=== PATIENT | male | born 1975 | race Hispanic/Latino ===

== ENCOUNTER 2018-08-15 10:16 | Emergency (ER) | payer OTHER ==
[2018-08-15] MEDS ORDERED: Sodium Chloride 0.9% 1,000 ML IV STA (11:08)
[2018-08-15] MEDS ORDERED: Tdap Vaccine 0.5 ml Vial (10-64 yrs) IM ONE ×2 (11:08→11:39)
--- NOTE | 2018-08-15 11:14 | ED PDOC ---
Syncope/Near Syncope/Dizziness Time Seen by Provider: 08/15/18 10:22 Chief Complaint (Nursing): Syncope History Per: Patient Additional Complaint(s): Pt. presents with and states earlier today he was walked to the kitchen to have a glass of water, felt nauseous, then lost consciousness. As per his she heard him fall and she immediately went to the kitchen and saw him lying on his side unconscious. She tried to wake him up but then pt. "stiffened up" which lasted for approximately 30 seconds and pt. regained consciousness spontaneously and was talking to her. They called an ambulance and by the time the ambulance arrived to their apartment pt. was fine and sitting down but then felt nauseous again and fell to the floor and lost consciousness again. Reports pt. did "stiffen" once again and regained consciousness spontaneously. Reports no hx of seizure disorder. Currently c/o occipital headache, neck pain, and L sided upper back pain. Denies oral injury, incontinence, chest pain, SOB, extremity pain, numbness, tingling, vomiting, abdominal pain. Past Medical History Reviewed: Historical Data, Nursing Documentation, Vital Signs - Medical History PMH: Denies: Seizures - Surgical History Surgical History: No Surg Hx - Family History Family History: States: No Known Family Hx - Allergies Allergies/Adverse Reactions: Allergies Allergy/AdvReac Type Severity Reaction Status Date / Time No Known Allergies Allergy Verified 08/15/18 10:44 Review of Systems ROS Statement: Except As Marked, All Systems Reviewed And Found Negative Gastrointestinal: Positive for: Nausea Musculoskeletal: Positive for: Back Pain Neurological: Positive for: Altered Mental Status, Headache Physical Exam - Physical Exam Appears: Positive for: Well, Non-toxic, No Acute Distress Head Exam: Negative for: ATRAUMATIC (R occipital scalp with 0.5cm superficial linear laceration without active bleeding), NORMAL INSPECTION, NORMOCEPHALIC Eye Exam: Positive for: Normal appearance, EOMI, PERRL. Negative for: Periorbital swelling, Periorbital tenderness ENT: Positive for: Normal ENT Inspection, TM Is/Are (no hemotympanum b/l), Other (no oral injury) Neck: Positive for: Normal, Painless ROM Cardiovascular/Chest: Positive for: Regular Rate, Rhythm. Negative for: Chest Non Tender (L sided axillary chest wall tenderness) Respiratory: Positive for: Normal Breath Sounds, Other (no flail chest). Negative for: Respiratory Distress Gastrointestinal/Abdominal: Positive for: Normal Exam, Soft, Other (no ecc hymosis). Negative for: Tenderness Back: Positive for: Normal Inspection. Negative for: L CVA Tenderness, R CVA Tenderness, Vertebral Tenderness (no c-spine tenderness) Extremity: Positive for: Normal ROM Neurologic/Psych: Positive for: Alert, Oriented (x3). Negative for: Aphasia, Facial Droop - Laboratory Results Result Diagrams: 08/15/18 11:00 08/15/18 11:00 - ECG ECG: Positive for: Interpreted By Me ECG Rhythm: Positive for: Sinus Rhythm. Negative for: ST/T Changes - Progress ED Course And Treament: Labs, EKG, CT head, c-spine, chest w/o contrast ordered. Pt. placed on diagnostic cardiac sonographer. Tetanus prophylaxis administered. On re-evalaution, pt. in no distress. Reports feeling much better. Informed of all results including CT results. Pt. reports no hx of previous thyroid disease or cysts in brain. Advised to f/u with [facility] or Dr. Feldman for further evaluation. Family and patient verbalized correct understanding of necessary f/u and care. Advised to return to ED immediately for any concerns. Procedures - Time-Out Type of Procedure: laceration repair Site of Procedure: scalp - Laceration/Wound Repair laceration Wound Length (cm): 0.5 Wound's Depth, Shape: superficial, linear Irrigated w/ Saline (ccs): 100 Wound Repaired With: Elmer (1) Wound Complexity: Simple Disposition - Clinical Impression Clinical Impression: Syncope, Thyroid nodule, Pineal gland cyst, Scalp laceration - Patient ED Disposition Is Patient to be Admitted: No - Disposition Referrals: Harry Feldman MD [Medical Doctor] - Tena Botello MD [Staff Provider] - Disposition: Routine/Home Disposition Time: 13:07 Condition: IMPROVED Additional Instructions: STAPLE REMOVAL IN [address]LLOW UP WITH DR. BOTELLO (STEM SIZER) AND DR. FELDMAN (NEUROLOGIST) FOR FURTHER EVALUATION RETURN TO ED IMMEDIATELY IF SYMPTOMS WORSEN JYOTSNA LOZADA, thank you for letting us take care of you today. Your provider was Terrance Borrero MD and you were treated for POSS SYNCOPE. The emergency medical care you received today was directed at your acute symptoms. If you were prescribed any medication, please fill it and take as directed. It may take several days for your symptoms to resolve. Return to the Emergency Department if your symptoms worsen, do not improve, or if you have any other problems. Please contact your doctor or call one of the physicians/clinics you have been referred to that are listed on the Patient Visit Information form that is included in your discharge packet. Bring any paperwork you were given at discharge with you along with any medications you are taking to your follow up visit. Our treatment cannot replace ongoing medical care by a primary care provider outside of the emergency department. Thank you for allowing the [facility] team to be part of your care today. If you had an X-Ray or CT scan: A Radiologist will review the ED reading if any change in treatment is needed we will contact you. If you had a blood, urine, or wound culture: It will take several days for the results, if any change in treatment is needed we will contact you. If you had an STI test: It will take 48 hours for the results. Please call after 1 week if you have not heard back. Instructions: Laceration Repair With Elmer (DC), Syncope (Fainting) (DC), Thyroid Nodules, Cysts in the Brain Forms: [employer] (Jamaican) Print Language: MOZAMBICAN
[2018-08-15 11:23] LABS: VENOUS BLOOD GAS BASE EXCESS 5.8 mmol/L (0.0-2.0); VENOUS BLOOD GAS PCO2 55 mmHg (40-60); VENOUS BLOOD GAS PO2 31 mm/Hg (30-55); VENOUS BLOOD PH 7.38 (7.32-7.43)
[2018-08-15 11:28] VITALS: RESP 18; TEMP 98.7; O2SAT 100
[2018-08-15 11:58] LABS: ALB/GLOB RATIO 1.5 (1.0-2.1); ALBUMIN 4.2 g/dL (3.5-5.0); ALT/SGPT 47 U/L (21-72); AST/SGOT 42 U/L (17-59); BLOOD UREA NITROGEN 19 mg/dl (9-20); CALCIUM 9.3 mg/dL (8.4-10.2); GFR NON-AFRICAN AMERICAN > 60
[2018-08-15 12:00] LABS: BASO % 0.5 % (0.0-2.0); EOS # 0.2 K/uL (0.0-0.7); EOS % 2.8 % (0.0-4.0); HEMOGLOBIN 13.8 g/dL (12.0-18.0); LYMPH # 2.1 K/uL (1.0-4.3); LYMPH % 25.9 % (20.0-40.0); MEAN CELL VOLUME 98.7 fl (80.0-94.0); MEAN CORPUSCULAR HEMOGLOBIN 31.9 pg (27.0-31.0); MEAN CORPUSCULAR HGB CONC 32.4 g/dL (33.0-37.0); MEAN PLATELET VOLUME 7.8 fl (7.2-11.7); MONO # 0.7 K/uL (0.0-0.8); MONO % 8.7 % (0.0-10.0); NEUT # 4.9 K/uL (1.8-7.0); NEUT % 62.1 % (50.0-75.0); NRBC % 0.2 % (0.0-0.0); RBC 4.33 Mil/uL (4.40-5.90); RED CELL DISTRIBUTION WIDTH 12.9 % (11.5-14.5)
--- NOTE | 2018-08-15 12:32 | CT ---
Date of service: 08/15/2018 PROCEDURE: CT Cervical Spine without contrast HISTORY: Trauma COMPARISON: None available. TECHNIQUE: Axial computed tomography images were obtained of the cervical spine without the use of intravenous contrast. Coronal and sagittal reformatted images were created and reviewed. Radiation dose: Total exam DLP = 365.77 mGy-cm. This CT exam was performed using one or more of the following dose reduction techniques: Automated exposure control, adjustment of the mA and/or kV according to patient size, and/or use of iterative reconstruction technique. FINDINGS: VERTEBRAE: No fracture. Normal alignment. No destructive bony lesion. DISCS/SPINAL CANAL/NEURAL FORAMINA: No significant central canal or neural foraminal stenosis. Discs heights are grossly preserved. PARASPINAL SOFT TISSUES: Unremarkable. OTHER FINDINGS: There is a thin curvilinear density within the upper trachea that probably represents some adherent mucous stranding. There appears to be a vague area low attenuation left lobe thyroid gland associate with a small calcification. Small calcification right lobe thyroid gland; follow-up thyroid ultrasound recommended.. Note made of few tiny tonsil the right palatine tonsil IMPRESSION: No evidence of acute displaced-compression fractures nor retropulsed fragments. Low-attenuation lesion associate with small calcification left lobe thyroid gland felt be present. There also calcification right lobe. Follow-up thyroid ultrasound recommended.
--- NOTE | 2018-08-15 12:39 | CT ---
Date of service: 08/15/2018 PROCEDURE: CT Chest without contrast HISTORY: Trauma COMPARISON: No prior TECHNIQUE: Contiguous axial images were obtained through the chest without intravenous contrast enhancement. Sagittal and coronal reconstructions were performed. Radiation dose: Total exam DLP = 404.33 mGy-cm. This CT exam was performed using one or more of the following dose reduction techniques: Automated exposure control, adjustment of the mA and/or kV according to patient size, and/or use of iterative reconstruction technique. FINDINGS: LUNGS: Minimal passive/dependent type atelectasis seen both posterior lower lung pool. The the MEDIASTINUM: Unremarkable thoracic aorta. No aneurysm. Normal sized heart. Main pulmonary artery unremarkable. No vascular congestion. No lymphadenopathy. No aortic atherosclerotic calcification. PLEURA: No pleural fluid. No pneumothorax. BONES: No fracture. No destructive lesion. UPPER ABDOMEN: Grossly unremarkable. OTHER FINDINGS: None. IMPRESSION: Minimal passive atelectasis both posterior lower lung pool. No evidence of acute intra thoracic posttraumatic sequela.
--- NOTE | 2018-08-15 12:47 | CT ---
Date of service: 08/15/2018 PROCEDURE: CT HEAD WITHOUT CONTRAST. HISTORY: Trauma COMPARISON: None available. TECHNIQUE: Axial computed tomography images were obtained through the head/brain without intravenous contrast. Radiation dose: Total exam DLP = 813.98 mGy-cm. This CT exam was performed using one or more of the following dose reduction techniques: Automated exposure control, adjustment of the mA and/or kV according to patient size, and/or use of iterative reconstruction technique. FINDINGS: HEMORRHAGE: No intracranial hemorrhage. BRAIN: No mass effect or edema. No atrophy or chronic microvascular ischemic changes. Tiny peripheral calcifications seen surrounding an approximately 11.8 x 10.2 mm pineal gland cyst. Pineal gland cyst. VENTRICLES: Unremarkable. No hydrocephalus. CALVARIUM: Unremarkable. PARANASAL SINUSES: Unremarkable as visualized. No significant inflammatory changes. MASTOID AIR CELLS: Unremarkable as visualized. No inflammatory changes. OTHER FINDINGS: None. IMPRESSION: No acute intracranial hemorrhage. Small pineal gland cyst
[2018-08-15 13:16] LABS: SQUAMOUS EPITHIAL < 1 /hpf (0-5); URINE BILIRUBIN NEGATIVE (NEGATIVE); URINE BLOOD NEGATIVE (NEGATIVE); URINE CLARITY SLIGHTY-CLOUDY (Clear); URINE COLOR YELLOW (YELLOW); URINE GLUCOSE (UA) NEG (NEGATIVE); URINE LEUKOCYTE ESTERASE NEG Leu/uL (Negative); URINE PROTEIN NEGATIVE (NEGATIVE); URINE UROBILINOGEN 0.2-1.0 mg/dL (0.2-1.0)
[2018-08-15 13:37] LABS: BARBITURATES, UR NEGATIVE (NEGATIVE); BENZODIAZEPINES, UR NEGATIVE (NEGATIVE); OPIATES, UR NEGATIVE (NEGATIVE); PHENCYCLIDINE, UR NEGATIVE (NEGATIVE)
[2018-08-15 14:09] VITALS: BP 135/88; PULSE 78
--- NOTE | 2018-08-16 00:21 | CARD ---
APPROVED REPORT Date of service: 08/15/2018 EKG Measurement Heart [id number] <Conclusion> Normal sinus rhythm Normal ECG
== END 2018-08-15 14:09 | disposition home or self-care (01) ==
LOC: H.ER 10:16
DX: R55 Syncope and collapse (principal); S01.01XA Laceration without foreign body of scalp, initial encounter; W19.XXXA Unspecified fall, initial encounter; Y92.89 Other specified places as the place of occurrence of the external cause; E04.1 Nontoxic single thyroid nodule; D35.4 Benign neoplasm of pineal gland; Z23 Encounter for immunization
CPT/HCPCS: 12001; 70450; 71250; 72125; 80053; 80320; 80324; 80345; 80346; 80349; 80353; 80358; 80361; 81003; 82803; 82948; 83992; 85025; 90471; 90715; 93005; 96374; 99285; J2405; J7030